=== PATIENT | female | born 1990 | race Caucasian/White ===

== ENCOUNTER 2018-01-08 12:34 | Outpatient (CLI) | payer OTHER | END 2018-01-08 12:35 | disposition home or self-care (01) | LOC: DTY/OP 12:34 | PROVIDERS: ATTEND Surgery | DX: E66.01 Morbid (severe) obesity due to excess calories (principal) | CPT/HCPCS: 97802 ==

== ENCOUNTER 2018-02-10 11:59 | Outpatient (CLI) | payer OTHER ==
[2018-02-10 13:36] LABS: BHCG - Serum Negative (NEGATIVE); Pregs Control Background? CLEAR/WHITE (CLR/WHITE); Pregs Control Bar Appear? YES (CONTROL BAR)
[2018-02-10 13:43] LABS: Hemoglobin A1c 5.6 % (4.0-6.0)
[2018-02-10 13:59] LABS: ALT (SGPT) 57 U/L (8-55); AST (SGOT) 30 U/L (5-34); Albumin 3.9 g/dL (3.5-5.0); Alkaline Phosphatase 58 U/L (40-150); Anion Gap 11 mmol/L (10-20); BUN (Urea Nitrogen) 11 mg/dL (7.0-18.7); Bilirubin, Direct 0.2 mg/dL (0.1-0.3); Bilirubin, Total 0.5 mg/dL (0.2-1.2); Calc. Creatinine Clearance 0 mL/min (70-130); Calcium 9.4 mg/dL (7.8-10.44); Carbon Dioxide 24 mmol/L (22-29); Chloride 105 mmol/L (98-107); Estimated GFR-MDRD Greater than 90; Globulin 3.8 g/dL (2.4-3.5); Glucose 86 mg/dL (70-105); Potassium 4.3 mmol/L (3.5-5.1); Protein, Total 7.7 g/dL (6.0-8.3); Sodium 136 mmol/L (136-145)
--- NOTE | 2018-02-10 14:34 | RAD ---
PA AND LATERAL CHEST: Date: 02/10/18 HISTORY: Preoperative evaluation. FINDINGS: Cardiac silhouette and pulmonary vasculature are within normal limits. Lungs are clear. Osseous struc tures are intact. IMPRESSION: No acute cardiopulmonary process. POS: BALTAZAR
[2018-02-10 16:01] LABS: #Basophils 0.1 thou/uL (0.0-0.2); #Eosinphils 0.1 thou/uL (0.0-0.7); #Lymphocytes 2.2 thou/uL (1.20-3.40); #Monocytes 0.3 thou/uL (0.11-0.59); #Neutrophils 4.5 thou/uL (1.40-6.50); %Basophils 0.8 % (0.0-1.0); %Eosinophils 2.1 % (0.0-10.0); %Lymphocytes 29.9 % (21.0-51.0); %Monocytes 4.3 % (0.0-10.0); Hemoglobin 15.1 g/dL (12.0-16.0); Mean Corpuscular HGB CONC 33.6 g/dL (32.0-36.0); Mean Corpuscular Hemoglobin 29.2 pg (27.0-31.0); Mean Platelet Volume 8.7 fL (7.4-10.4); Platelet Count 276 thou/uL (130-400); RBC Distribution Width 11.7 % (11.5-14.5); Red Blood Cell (RBC) Count 5.17 mill/uL (4.20-5.40); White Blood Cell (WBC) Count 7.2 thou/uL (4.8-10.8)
== END 2018-02-10 12:00 | disposition home or self-care (01) ==
LOC: LABBT 11:59
PROVIDERS: ATTEND Surgery
DX: Z01.818 Encounter for other preprocedural examination (principal); E66.01 Morbid (severe) obesity due to excess calories
CPT/HCPCS: 71046; 80053; 80076; 83036; 84703; 85025; 93005; 93010

== ENCOUNTER 2018-02-10 12:00 | Inpatient (IN) | payer OTHER ==
[2018-02-10 12:18] VITALS: BMI 50.4
[2018-02-18] MEDS ORDERED: Bupivacaine/Epinephrine 0.25% 30 ML VIAL ONE (08:12)
[2018-02-18] MEDS ORDERED: Lidocaine 1% (PF) 30 ML VIAL ONE (08:39)
[2018-02-18] MEDS ORDERED: CEFAZOLIN/Water 2 GM/20 ML SYRINGE ONE (08:39)
[2018-02-18] MEDS ORDERED: Heparin 5,000 UNITS/ML VIAL ONE (08:39)
[2018-02-18] MEDS ORDERED: Fentanyl 100 MCG/2 ML VIAL ONE (08:39)
[2018-02-18] MEDS ORDERED: Midazolam HCl 2 mg/2 ml Vial ONE ×2 (08:39)
[2018-02-18] MEDS ORDERED: HYDROmorphone 0.5 MG/0.5 ML SYRINGE ONE ×4 (08:39→11:22)
[2018-02-18] MEDS ORDERED: diphenhydrAMINE 50 MG/ML VIAL IVP PRN ×2 (08:41→10:29)
[2018-02-18] MEDS ORDERED: Meperidine HCl/PF 25 MG/ML VIAL SLOW IVP PRN (08:41)
[2018-02-18] MEDS ORDERED: HYDROmorphone 2 MG/ML VIAL SLOW IVP PRN (08:41)
[2018-02-18] MEDS ORDERED: Naloxone HCl 0.4 mg/ml Vial IV PRN (08:41)
[2018-02-18] MEDS ORDERED: Dexamethasone 20 MG/5 ML VIAL ONE (08:41)
[2018-02-18] MEDS ORDERED: Zolpidem Tartrate 5 MG TAB PO PRN (08:41)
[2018-02-18] MEDS ORDERED: Ketorolac Tromethamine 30 MG/ML VIAL ONE (08:41)
[2018-02-18] MEDS ORDERED: diphenhydrAMINE 25 MG CAP PO PRN (08:41)
[2018-02-18] MEDS ORDERED: Ondansetron HCl/PF 4 MG/2 ML Vial IVP PRN ×3 (08:41→10:29)
[2018-02-18] MEDS ORDERED: Glycopyrrolate 0.2 MG/ML 5 ML SYRINGE ONE (08:41)
[2018-02-18] MEDS ORDERED: HYDROmorphone 10 mg/100 ml CADD IVPB PRN (08:41)
[2018-02-18] MEDS ORDERED: Promethazine HCl 25 MG/ML VIAL IM PRN ×3 (08:41→10:29)
[2018-02-18] MEDS ORDERED: Promethazine HCl 25 MG/ML VIAL SLOW IVP PRN (08:41)
[2018-02-18] MEDS ORDERED: Ondansetron HCl/PF 4 MG/2 ML Vial ONE (08:41)
[2018-02-18] MEDS ORDERED: diphenhydrAMINE 50 MG/ML VIAL IM PRN (08:41)
[2018-02-18] MEDS ORDERED: Lidocaine 1% PF 5 ML VIAL ONE (08:41)
[2018-02-18] MEDS ORDERED: Communication Order-Pharmacy FS SCH (08:45)
[2018-02-18] MEDS ORDERED: hydrALAZINE 20 MG/ML VIAL SLOW IVP PRN (10:29)
[2018-02-18] MEDS ORDERED: Dextrose 50% Abboject 50 ML SYRINGE SLOW IVP PRN (10:29)
[2018-02-18] MEDS ORDERED: Hydrocodone-Acetamin 15 ML UDCUP PO PRN (10:29)
[2018-02-18] MEDS ORDERED: Dextrose 5% in Water 1,000 ML IV PRN (10:29)
[2018-02-18] MEDS ORDERED: Labetalol HCl 100 MG/20 ML VIAL ONE (11:44)
[2018-02-18] MEDS ORDERED: Labetalol HCl 100 MG/20 ML VIAL IVPB PRN ×2 (13:10→13:15)
[2018-02-18] MEDS: D5 1/2 NS w/20 mEq KCL 1,000 ML IV SCH ×3 (13:25→20:04)
[2018-02-18] MEDS: Acetaminophen 1,000 MG in Premix Bag 1 BAG IVPB SCH ×2 (13:41→17:34)
[2018-02-18] MEDS: Ketorolac Tromethamine 30 MG/ML VIAL IVP SCH ×2 (13:41→17:34)
--- NOTE | 2018-02-18 14:49 | OP ---
DATE OF PROCEDURE: 02/18/2018 PREOPERATIVE DIAGNOSIS: Morbid obesity. SURGEON: Niels Fernandez M.D. PROCEDURE PERFORMED: Laparoscopic sleeve gastrectomy and esophagogastroscopy. INDICATIONS: This is a 27-year-old female, morbidly obese, who has attempted multiple weight loss pr ograms without success. FINDINGS: A 38 [place] bougie used. PROCEDURE IN DETAIL: After informed consent was obtained, the patient was taken to the operating ahsan m and given general endotracheal anesthesia. She was placed in supine position. Her abdomen was pre pped and draped in usual fashion. Local anesthesia infiltrated subcutaneously and deep. A 12 mm inc ision was performed approximately 8 inches below the xiphoid slightly to the left. Veress needle ins erted. Drop test performed. Pneumoperitoneum was created to a volume of 2 liters of carbon dioxide. Utilizing a bladeless 12 mm trocar and 0 degree laparoscope direct visual entry in the abdominal ca vity was performed. Pneumoperitoneum was created to a pressure of 15 mmHg. The patient placed in st eep reverse Trendelenburg position. Nathansen liver retractor inserted. Left lobe of liver retracte d superiorly. The pylorus identified and a 12 mm port placed on the right beneath it and two 12s alfonso holland left subcostal. The omentum was taken off the greater curvature 5 cm from the pylorus utilizing the LigaSure. Short gastrics divided with LigaSure, left crura defined with the LigaSure. A 38-Fren ch bougie inserted and directed into the antrum. The linear 60 mm green load stapler used to divide the antrum to the bougie, gold load along the bougie, and a series of blues through the angle of His. Intraoperative endoscopy was performed. The video endoscope inserted under direct vision and advan holland into the sleeve. Staple line inspected. There was no bleeding. Staple line then tested by infl ating the new stomach with pressurized air under water. There was no air leak. Stomach decompressed . Scope removed. The remnant stomach removed from the abdomen through the left lateral port site. The fascia closed with 0 Vicryl suture and the GraNee needle. Trocars and retractors removed. The s kin closed with interrupted 4-0 Rapide. Dermabond applied. The patient tolerated the procedure well and was transferred to recovery in good condition. Sponge and needle count verified correct x2.
[2018-02-18] MEDS: CEFAZOLIN/Water 2 GM/20 ML SYRINGE SLOW IVP SCH (17:34)
[2018-02-19] MEDS: Ketorolac Tromethamine 30 MG/ML VIAL IVP SCH ×3 (00:50→13:14)
[2018-02-19] MEDS: Acetaminophen 1,000 MG in Premix Bag 1 BAG IVPB SCH ×3 (00:50→12:19)
[2018-02-19] MEDS: CEFAZOLIN/Water 2 GM/20 ML SYRINGE SLOW IVP SCH (00:50)
[2018-02-19 04:53] LABS: #Eosinphils 0.1 thou/uL (0.0-0.7); #Lymphocytes 1.2 thou/uL (1.20-3.40); #Monocytes 0.4 thou/uL (0.11-0.59); #Neutrophils 10.5 thou/uL (1.40-6.50); %Eosinophils 0.5 % (0.0-10.0); %Lymphocytes 9.8 % (21.0-51.0); %Monocytes 3.6 % (0.0-10.0); %Neutrophils 86.2 % (42.0-75.0); Hemoglobin 13.4 g/dL (12.0-16.0); Mean Platelet Volume 8.7 fL (7.4-10.4); Platelet Count 260 thou/uL (130-400); RBC Distribution Width 11.8 % (11.5-14.5); Red Blood Cell (RBC) Count 4.62 mill/uL (4.20-5.40); White Blood Cell (WBC) Count 12.2 thou/uL (4.8-10.8)
[2018-02-19 05:06] LABS: Anion Gap 9 mmol/L (10-20); BUN (Urea Nitrogen) 6 mg/dL (7.0-18.7); Calc. Creatinine Clearance 267 mL/min (70-130); Calcium 8.5 mg/dL (7.8-10.44); Carbon Dioxide 25 mmol/L (22-29); Chloride 105 mmol/L (98-107); Estimated GFR-MDRD Greater than 90; Glucose 115 mg/dL (70-105); Potassium 4.2 mmol/L (3.5-5.1); Sodium 135 mmol/L (136-145)
[2018-02-19] MEDS ORDERED: Pantoprazole 40 MG VIAL IVP SCH (09:00)
[2018-02-19] MEDS ORDERED: Enoxaparin Sodium 40 MG/0.4 ML SYRINGE SC SCH (09:00)
--- NOTE | 2018-02-19 09:25 | RAD ---
LIMITED UPPER GI WITH 13 ML ORAL GASTROGRAFIN: HISTORY: Status post recent vertical sleeve gastrectomy, bariatric surgery. FINDINGS: There is prompt passage of contrast from the esophagus into the stomach. No contrast extravasation i s seen. IMPRESSION: No evidence of obstruction or leak. POS: BALTAZAR
[2018-02-19] MEDS ORDERED: Hydrocodone-Acetamin 15 ML UDCUP PO PRN (13:06)
[2018-02-19 13:22] VITALS: BP 144/80; TEMP 97.7
--- NOTE | 2018-02-19 21:17 | DIS ---
DATE OF ADMISSION: 02/18/2018 DATE OF DISCHARGE: 02/19/2018 DISCHARGE DIAGNOSIS: Morbid obesity. PROCEDURES DURING ADMISSION: Laparoscopic sleeve gastrectomy, intraoperative esophagogastroscopy, po stoperative Gastrografin swallow. HOSPITAL COURSE: The patient was admitted, taken to the operating room where she underwent a sleeve gastrectomy. Postoperatively, she has done well. Swallow was fine. She is tolerating liquids well. She is discharged home on hydrocodone and Zofran. She will follow up with me in 2 weeks.
== END 2018-02-19 13:45 | disposition home or self-care (01) | DRG 621 ==
LOC: SURG A 02-18 08:15 → SJJU 02-18 12:46
PROVIDERS: ADMIT Surgery; ATTEND Surgery
PROC: 0DB64Z3 Excision of Stomach, Percutaneous Endoscopic Approach, Vertical (ICD-10-PCS; principal; 2018-02-18)
PROC: 0DJ08ZZ Inspection of Upper Intestinal Tract, Via Natural or Artificial Opening Endoscopic (ICD-10-PCS; 2018-02-18)
DX: E66.01 Morbid (severe) obesity due to excess calories (principal); Z68.43 Body mass index [BMI] 50.0-59.9, adult
CPT/HCPCS: 36415; 74241; 80048; 85025; 88307; 88312; 94760; C9113; J0131; J1100; J1170; J1644; J1650; J1885; J2001; J2250; J2405; J3010